=== PATIENT | female | born 2000 | race Caucasian/White ===

== ENCOUNTER 2024-04-25 16:39 | Inpatient (IN) ==
[2024-04-25 17:55] LABS: Appearance Urine Clear (Clear); Bacteria Urine Automated None Seen (None Seen); Bilirubin Urine Negative (Negative); Blood Urine Trace (Negative); Cast Urine Automated 0-2 /lpf (0-2); Color Urine Yellow; Epithelial Cell Urine Auto 0-2 /hpf (0-2); Glucose Urine UA Negative (Negative); Ketones Urine Negative (Negative); Leukocyte Esterase Urine Negative (Negative); Nitrite Urine Negative (Negative); Protein Urine Negative (Negative); RBC Urine Automated 0-2 /hpf (0-2); Specific Gravity Urine 1.017 (1.000-1.030); Urobilinogen Urine Negative (Negative); WBC Urine Automated 0-5 /hpf (0-5); pH Urine 6.5 (4.5-7.5)
[2024-04-25 18:06] LABS: Basophils # (auto) 0.02 K/uL (0.00-0.20); Basophils % (auto) 0.3 %; Eosinophils # (auto) 0.05 K/uL (0.00-0.50); Eosinophils % (auto) 0.7 %; Hematocrit (blood only) 39.6 % (37.0-47.0); Hemoglobin 13.7 g/dl (12.0-16.0); Immature Granulocytes # (auto) 0.02 K/uL (0.01-0.20); Immature Granulocytes % (auto) 0.3 %; Lymphocytes # (auto) 1.39 K/uL (1.20-3.40); Lymphocytes % (auto) 20.7 %; Mean Corpuscular Hemoglobin 32.4 pg (25.0-34.0); Mean Corpuscular Hgb Conc 34.6 g/dL (32.0-36.0); Mean Corpuscular Volume 93.6 fL (80.0-100.0); Mean Platelet Volume 11.3 fL (9.4-12.4); Monocytes # (auto) 0.66 K/uL (0.11-0.59); Monocytes % (auto) 9.8 %; Neutrophils # (auto) 4.59 K/uL (1.40-6.50); Neutrophils % (auto) 68.2 %; Platelet Count 220 K/uL (130-400); RDW Coefficient of Variation 11.4 % (11.5-14.5); RDW Standard Deviation 38.5 fL (36.4-46.3); Red Blood Count 4.23 M/uL (4.20-5.40); White Blood Count 6.73 K/ul (4.8-10.8)
[2024-04-25 18:16] LABS: Amphetamines+Metham, Urine Neg (Neg); Barbiturates, Urine Neg (Neg); Benzodiazepine, Urine Neg (Neg); Cocaine, Urine Neg (Neg); Fentanyl, Urine Neg (Neg); MDMA (Ecstacy), Urine Neg (Neg); Marijuana, Urine Neg (Neg); Methadone, Urine Neg (Neg); Opiate, Urine Neg (Neg); Phencyclidine, Urine Neg (Neg)
[2024-04-25 18:24] LABS: Albumin Globulin Ratio 1.6 (0.9-2); Albumin Level 4.4 gm/dl (3.4-5.0); BUN Creatinine Ratio 16.9 (10-20); Bilirubin,Total 0.4 mg/dl (0.2-1.0); Calcium 9.1 mg/dl (8.6-10.3); Creatinine Clr Calc Pharmacy 102.7 ml/min; Globulin 2.8 gm/dl (2.5-4.0); Potassium 4.2 mmol/L (3.5-5.1); Total Protein 7.2 gm/dl (6.0-8.3)
[2024-04-25 18:30] LABS: Acetaminophen < 3 ug/ml (10-30); Salicylate < 3.0 mg/dl (3.0-30)
[2024-04-25 18:40] LABS: Thyroid Stimulating Hormone 1.198 uIu/ml (0.300-4.500)
[2024-04-25 18:50] LABS: Pregnancy Test, Urine Negative (Negative)
[2024-04-25] MEDS: PANTOprazole 40 MG/10 ML SYR IV ONE (19:20)
--- NOTE | 2024-04-25 19:33 | Emergency Department Note ---
Impression & Plan Depression with suicidal ideation, Suicide attempt ED Provider Note NAME: TAMI CRUMP AGE: 23 SEX: F : 2000 ARRIVES VIA: Walk-In INFORMANT: [Patient][, ] ED PROVIDER(S): [Jennie Whatley MD] CHIEF COMPLAINT: Depression, SI, intentional overdose HPI: This is a 23-year-old female presenting for SI. Patient attempted kill her self today by taking 20+ pills of ibuprofen. She notes his intent to harm herself. She then began cutting her leg with a paper box maker multiple times. She thought that the ibuprofen would be a blood thinner so that she could bleed out. She otherwise notes no nausea, vomiting, chest pain. ROS: See above HPI for pertinent positives & negatives. A total of [10] systems reviewed and were otherwise negative. PAST MEDICAL HISTORY: [See Below] PAST SURGICAL HISTORY: [See Below] FAMILY HISTORY: [See Below] SOCIAL HISTORY: [See Below] HOME MEDICATIONS: [See Below] ALLERGIES: [See Below] VITALS: See Below PHYSICAL EXAMINATION: General: resting comfortably in no acute distress Head: Normocephalic and atraumatic Eyes: Normal inspection, extraocular muscles intact Ear, nose, throat: Normal external exam Neck: Normal range of motion Respiratory: lungs clear to auscultation bilaterally Cardiovascular: Regular rate/rhythm, no murmur GI: soft, nontender, no guarding or rebound Extremities: nontender, moves all extremities Neuro: The patient awake and alert, appropriately conversive, no focal deficits, symmetric faces Skin: Innumerable linear superficial lacerations to the right thigh Psych: Flat affect, linear thought process, MEDICAL DECISION MAKING: This is a 23-year-old female presenting for SI. Patient did try to overdose and cut in order to harm herself. She will require inpatient admission. She is voluntary at this time. -Patient only taking Motrin, will give Protonix. She otherwise has no coingestions on blood work. She denies any other ingestion. -Bloodwork is reviewed showing no significant leukocytosis, anemia, electrolyte or creatinine abnormality -Patient is cleared for psych placement -Patient will go to 3 S. unit here Differential diagnosis: Psychosis, SI, depression Past Med/Surg History Problem List (Updated 04/26/24 @ 00:59 by Jennie Whatley MD) Suicide attempt (Acute) Depression with suicidal ideation (Acute) Medical History (Updated 04/26/24 @ 00:59 by Jennie Whatley MD) No pertinent past medical history Social History (System 12/25/22 @ 07:57 by Nola Rae) Smoking Status: Never smoker Feels Safe at Home: Yes Gender Identity: Female Allergies Allergies Allergy/AdvReac Type Severity Reaction Status Date / Time No Known Allergies Allergy Verified 04/25/24 19:27 Home Meds Home Medications Medication Instructions Recorded Confirmed norgestrel 0.3 mg-ethinyl 1 tab PO DAILY 10/18/23 04/25/24 estradiol 30 mcg tablet (Low-Ogestrel (28)) Results & Data (ED) Vital Signs Vital Signs - 24 hr 04/25/24 17:00 04/25/24 17:26 04/25/24 19:00 Temperature 36.8 C Temperature Source Skin Pulse Rate 102 H 80 Pulse Rate [Apical] 91 H Pulse Rhythm [Apical] Regular Pulse Strength [Apical] Normal Respiratory Rate 18 20 Respiratory Effort / Characteristics Non-Labored Spontaneous Respiratory Depth Normal Respiratory Pattern Regular Blood Pressure 149/89 H Blood Pressure [Left Arm] 119/71 Blood Pressure Mean 109 Blood Pressure Mean [Left Arm] 87 Blood Pressure Position [Left Arm] Lying Pulse Oximetry 98 96 Oxygen Delivery Method Room Air Room Air Sepsis Recent Fever Within 48 Hours No Sepsis New/Unexplained Change in Mental Status No Sepsis Action Taken by Nursing No Action Required 04/25/24 21:00 04/25/24 21:22 04/25/24 23:00 Temperature Temperature Source Pulse Rate 84 Pulse Rate [Apical] 84 94 H Pulse Rhythm [Apical] Regular Pulse Strength [Apical] Normal Respiratory Rate 18 18 Respiratory Effort / Characteristics Non-Labored Respiratory Depth Normal Respiratory Pattern Regular Blood Pressure Blood Pressure [Left Arm] 108/74 118/77 Blood Pressure Mean Blood Pressure Mean [Left Arm] 85 90 Blood Pressure Position [Left Arm] Lying Pulse Oximetry 97 98 Oxygen Delivery Method Room Air Room Air Sepsis Recent Fever Within 48 Hours Sepsis New/Unexplained Change in Mental Status Sepsis Action Taken by Nursing 04/25/24 23:30 Temperature Temperature Source Pulse Rate Pulse Rate [Apical] 94 H Pulse Rhythm [Apical] Pulse Strength [Apical] Respiratory Rate 16 Respiratory Effort / Characteristics Respiratory Depth Respiratory Pattern Blood Pressure Blood Pressure [Left Arm] 112/77 Blood Pressure Mean Blood Pressure Mean [Left Arm] 88 Blood Pressure Position [Left Arm] Pulse Oximetry 98 Oxygen Delivery Method Room Air Sepsis Recent Fever Within 48 Hours Sepsis New/Unexplained Change in Mental Status Sepsis Action Taken by Nursing Laboratory Data 04/25/24 17:46 04/25/24 17:46 Lab Results 04/25/24 04/25/24 04/25/24 Range/Units 17:14 17:38 17:46 WBC 6.73 (4.8-10.8) K/ul RBC 4.23 (4.20-5.40) M/uL Hgb 13.7 (12.0-16.0) g/dl Hct 39.6 (37.0-47.0) % MCV 93.6 (80.0-100.0) fL MCH 32.4 (25.0-34.0) pg MCHC 34.6 (32.0-36.0) g/dL RDW Std Deviation 38.5 (36.4-46.3) fL RDW Coeff of Ethan 11.4 L (11.5-14.5) % Plt Count 220 (130-400) K/uL MPV 11.3 (9.4-12.4) fL Immature Gran % (Auto) 0.3 % Neut % (Auto) 68.2 % Lymph % (Auto) 20.7 % Nolan % (Auto) 9.8 % Eos % (Auto) 0.7 % Baso % (Auto) 0.3 % Neut # (Auto) 4.59 (1.40-6.50) K/uL Lymph # (Auto) 1.39 (1.20-3.40) K/uL Nolan # (Auto) 0.66 H (0.11-0.59) K/uL Eos # (Auto) 0.05 (0.00-0.50) K/uL Baso # (Auto) 0.02 (0.00-0.20) K/uL Immature Gran # (Auto) 0.02 (0.01-0.20) K/uL Sodium 140 (136-145) mmol/L Potassium 4.2 (3.5-5.1) mmol/L Chloride 106 (98-107) mmol/L Carbon Dioxide 28 (21-32) mmol/L Anion Gap 6 (3-11) BUN 15 (6-23) mg/dl Creatinine 0.89 (0.6-1.2) mg/dl Est Cr Clr Drug Dosing 102.7 ml/min eGFR 93.37 BUN/Creatinine Ratio 16.9 (10-20) Glucose 87 (70-99(Fasting)) mg/dl Calcium 9.1 (8.6-10.3) mg/dl Total Bilirubin 0.4 (0.2-1.0) mg/dl AST 18 (13-39) U/L ALT 14 (7-52) U/L Alkaline Phosphatase 50 (34-104) U/L Total Protein 7.2 (6.0-8.3) gm/dl Albumin 4.4 (3.4-5.0) gm/dl Globulin 2.8 (2.5-4.0) gm/dl Albumin/Globulin Ratio 1.6 (0.9-2) TSH 1.198 (0.300-4.500) uIu/ml Urine Color Yellow Urine Appearance Clear (Clear) Urine pH 6.5 (4.5-7.5) Ur Specific [place] 1.017 (1.000-1.030) Urine Protein Negative (Negative) Urine Glucose (UA) Negative (Negative) Urine Ketones Negative (Negative) Urine Blood Trace H (Negative) Urine Nitrite Negative (Negative) Urine Bilirubin Negative (Negative) Urine Urobilinogen Negative (Negative) Ur Leukocyte Esterase Negative (Negative) Urine WBC (Auto) 0-5 (0-5) /hpf Urine RBC (Auto) 0-2 (0-2) /hpf U Hyaline Cast (Auto) 0-2 (0-2) /lpf U Epithel Cells (Auto) 0-2 (0-2) /hpf Urine Bacteria (Auto) None Seen (None Seen) Urine Test Negative (Negative) Salicylates < 3.0 L (3.0-30) mg/dl Urine Opiates Screen Neg (Neg) Ur Methadone, Qual Neg (Neg) Urine Fentanyl Screen Neg (Neg) Acetaminophen < 3 L (10-30) ug/ml Urine Barbiturates Neg (Neg) Ur Phencyclidine (PCP) Neg (Neg) U Amphetamin/Meth Scrn Neg (Neg) MDMA (Ecstasy) Screen Neg (Neg) U Benzodiazepines Scrn Neg (Neg) Ur Cocaine Metabolite Neg (Neg) U Marijuana (THC) Screen Neg (Neg) Ethyl Alcohol mg/dL < 10.0 (<10.0) mg/dl Administered Medications Discontinued Medications Pantoprazole Sodium (Protonix) 40 mg in 10 mls @ 5 mls/min IV NOW ONE Stop: 04/25/24 18:49 Last Admin: 04/25/24 19:20 Dose: 5 mls/min Documented By: GIOVANNA Discharge Plan Visit Data Chief Complaint: Mental Health Evaluation Stated Complaint: SUICIDE, SELF HARM THIGH BLEEDING ED Provider: Jennie Whatley Discharge Problem: Depression with suicidal ideation, Suicide attempt Patient Disposition: Transfer Behavioral Health Fac Discharge Instructions Interventions: ED Discharge Assessment Last Done: 04/26/24 00:27
[2024-04-25] MEDS ORDERED: SODIUM CHLORIDE 0.65% NA SOLN 45 ML (OCEAN) PRN (23:36)
[2024-04-25] MEDS ORDERED: ALUMINUM/MAGNESIUM SUSP 30 ML UDC PO PRN (23:36)
[2024-04-25] MEDS ORDERED: MAGNESIUM HYDROXIDE SUSP 30 ML UDC PO PRN (23:36)
[2024-04-25] MEDS ORDERED: hydrOXYzine HCl 25 MG TAB PO PRN (23:36)
[2024-04-25] MEDS ORDERED: ACETAMINOPHEN 325 MG TAB PO PRN (23:36)
[2024-04-25] MEDS ORDERED: BISMUTH SUBSALICYLATE 262 MG CHEW PO PRN (23:36)
--- NOTE | 2024-04-26 10:02 | History & Physical ---
Date of Service April 26, 2024 Impression / Recommendations Impression TAMI CRUMP is a 23-year-old woman and [employer] student who currently lives off campus with a roommate, has no formal psychiatric history, and was admitted on 04/25/24 23:36 on a 201 voluntary commitment for suicide attempt via cutting herself with a box order person and Ibuprofen overdose. Diagnostically consistent with major depressive disorder with anxious distress and DIONTE with panic attacks. Discussed medication treatment options in detail. Discussed risks, benefits and alternatives. Patient would like to start and consented to sertraline for MDD/DIONTE. Reviewed side effects including but not limited to: GI, BARNES, sexual side effects, and counseled on black box warning of potential for emergence of or increased SI and need to let staff know should this occur or should they feel unsafe. Also discussed importance of seeking emergency care following discharge if this side effect occurs in the future. Overall I spent a total of 75 minutes for this admission including review of chart records, review of labwork, direct evaluation of the patient, counseling the patient, ordering medication, risk assessment, discussion with the psychiatric liason RN and documentation in the electronic health record. (1) Suicide attempt: (2) Depression with suicidal ideation: (3) Major depressive disorder, single episode, severe with anxious distress: (4) Generalized anxiety disorder with panic attacks: Plan 04/26/2024: The patient was admitted to the [facility] ([facility] mental [facility] unit) on q15 min checks (behavioral with suicide precautions) for safety. The patient will participate in group, recreational, and milieu therapies and will be offered additional individual and family sessions as clinically appropriate. -Start sertraline 25mg qd -Symptom Questionnaire: [place] BPD screening tool -Discussed option for outpatient IOP vs increasing frequency of outpatient therapy Inventory Assets Strengths: supportive relationships, willing to get treatment Needs: safety and stabilization, medication adjustment, additional coping skills, increased outpatient services Suicide Risk Level Suicide Risk Level: High-Moderate (q15 min suicide checks) (s/p serious suicide attempt and ongoing SI but feels safe in the hospital and feels able to ask for support ) Risk Factors Assessment Male: No : Yes Do You Have Access To A Gun?: No (dad has a safe of guns but these are secured) Health Problems: No Mental Health Diagnoses: Yes Substance Use Disorders: No Previous Attempt: Yes (leading to admission) Family History of Suicide: No Previous Psychiatric Hospitalization: No Hopelessness: Yes Protective Factors Assessment 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 Chief Complaint "I'm where I need to be to try to feel better". History of Present Illness She presents for psychiatric admission following a suicide attempt via cutting her right thigh ~50 times with a box order person and overdose of Ibuprofen (~20 tabs) in the context of academic stress related to her thesis and worsening depression. She describes a gradual onset of depressive symptoms over the past couple of months, which intensified in the last one to two days leading to the suicide attempt. She had initially planned the attempt for Sunday after a [employer] tournament but moved it up by a day after learning that the tournament would require an overnight stay which would have prevented her planned timeline for suicide. She endorses depressive symptoms starting at the beginning of February and then started to plan to by suicide in the last 1-2 days. She decided to attempt via cutting and taking pills and researched the maximum recommended dosage for Ibuprofen and then took all the pills she had left in a bottle. After taking the pills and cutting herself she decided to tell her roommate who then brought her to the hospital. She endorses symptoms of depression starting in February including physical discomfort, tearfulness and numbness, anhedonia (not wanting to see friends or engage in activities), decreased motivation (including for schoolwork which typically she is very anxious about staying on top of), self-guilt, helplessness, hopelessness, worthlessness, decreased energy (despite drinking a lot more caffeine), stable appetite, and fluctuating sleep more recently sleeping more but with multiple overnight awakenings. SI has been occurring for the last week and intensified in the last 1-2 days. She also endorses symptoms of anxiety including fear of how she's feeling, being 'scared in general,' and recent panic attacks involving intense crying and difficulty breathing, occurring suddenly in inconvenient places, including during rugby practice. She is not currently prescribed any psychiatric medications. Psychiatric ROS notable for no current nor history of symptoms of prachi, psychosis, PTSD, OCD nor eating disorder. History of self-harm in high school 5- 6 years ago, none since that time until during the attempt. Past Psychiatric History Current Psychiatric Diagnosis: No prior mental health diagnosis Outpatient Services: therapy with Am[facility], once every two weeks Previous Psych Admissions: none Do You Have Access To A Gun?: No (dad has a safe of guns but these are secured) History of Previous Suicide Attempt: No Past Medication Trials: none Past Head Trauma/Neuro History History of Concussion/Seizure: No Allergies Allergy/AdvReac Type Severity Reaction Status Date / Time No Known Allergies Allergy Verified 04/25/24 19:27 Home Medications Medication Instructions Recorded Confirmed Type norgestrel 0.3 mg-ethinyl 1 tab PO DAILY 10/18/23 04/25/24 History estradiol 30 mcg tablet (Low-Ogestrel (28)) Family History Family History of: Alcoholism/Drug Abuse (maternal side extended family) Alcohol History Hx of Alcohol Use Over the Past 12 Months: No Very occasional use Smoking Use Have You Smoked or Used Tobacco Products in the Last 30 Days: No Smoking Status: Never smoker Substance History Hx of Prescription Med Misuse Over the Past 12 Months: No Hx of Over the Counter Med Misuse Over the Past 12 Months: No Hx of Inhalent Misuse Over the Past 12 Months: No Hx of Organic Substance Use Over the Past 12 Months: No Hx of Illegal Substances/Street Drug Use Over Past 12 Months: No Problems as a Result of Past Substance Use: None Identified Personal History Living Arrangements: Apartment Childhood: Parents , has two younger sisters. 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) Marital Status: Single Beliefs That Will Affect Care: None Current Legal Problems: No Hx Legal Problems: No Hx Traumatic Life Events: No Patient History Medical History No pertinent past medical history Social History Smoking Status: Never smoker Preferred Language: Indonesian Communication Ability: Effective Documentation Spec Required: No Beliefs That Will Affect Care: None Feels Safe at Home: Yes Gender Identity: Female Assistive Devices: None Review of Systems Review of Systems: All systems reviewed & are unremarkable except as noted in HPI & below Physical Exam Psychiatric: Orientation: alert and oriented x 3 Apperance: appropriately dressed and appropriately groomed Eye Contact: good eye contact Motor Behavior: no abnormal motor movements Speech: normal rate/rhythm/volume of speech Affect: + depressed affect and + flat affect Mood: + depressed mood and + anxious mood Thought Process: goal directed thought process Thought Content: reality based without delusions Suicidal Thoughts: denies suicidal plan (none for hospital but s/p attempt) and denies suicidal intent; + reports suicidal thoughts (still present but more "subdued" ) Homicidal Thoughts: denies homicidal thoughts Hallucinations: no auditory hallucinations and no visual hallucinations Cognition: recent memory grossly intact, remote memory grossly intact, attention grossly intact and language grossly intact Estimated Intelligence: consistent with education level Insight: + limited insight Judgment: + limited judgement Vital Signs (Past 24 Hours): Last Vital Signs Temp 36.6 C 04/26/24 06:00 Pulse 88 04/26/24 06:42 Resp 16 04/26/24 06:00 BP 118/71 04/26/24 06:42 Pulse Ox 99 04/26/24 06:00 O2 Del Method Room Air 04/26/24 06:00 Exam Statement: A physical exam was performed in the ED by Dr. Whatley for the purposes of medical clearance. I accept that physical as correct and adequate for the purposes of the inpatient physical exam. Results & Data ([facility]) Laboratory Results Laboratory Results - last 24 hr 04/25/24 04/25/24 04/25/24 17:14 17:38 17:46 WBC 6.73 RBC 4.23 Hgb 13.7 Hct 39.6 MCV 93.6 MCH 32.4 MCHC 34.6 RDW Std Deviation 38.5 RDW Coeff of Ethan 11.4 L Plt Count 220 MPV 11.3 Immature Gran % (Auto) 0.3 Neut % (Auto) 68.2 Lymph % (Auto) 20.7 [place] % (Auto) 9.8 Eos % (Auto) 0.7 Baso % (Auto) 0.3 Neut # (Auto) 4.59 Lymph # (Auto) 1.39 [place] # (Auto) 0.66 H Eos # (Auto) 0.05 Baso # (Auto) 0.02 Immature Gran # (Auto) 0.02 Sodium 140 Potassium 4.2 Chloride 106 Carbon Dioxide 28 Anion Gap 6 BUN 15 Creatinine 0.89 Est Cr Clr Drug Dosing 102.7 eGFR 93.37 BUN/Creatinine Ratio 16.9 Glucose 87 Calcium 9.1 Total Bilirubin 0.4 AST 18 ALT 14 Alkaline Phosphatase 50 Total Protein 7.2 Albumin 4.4 Globulin 2.8 Albumin/Globulin Ratio 1.6 TSH 1.198 Urine Color Yellow Urine Appearance Clear Urine pH 6.5 Ur Specific [place] 1.017 Urine Protein Negative Urine Glucose (UA) Negative Urine Ketones Negative Urine Blood Trace H Urine Nitrite Negative Urine Bilirubin Negative Urine Urobilinogen Negative Ur Leukocyte Esterase Negative Urine WBC (Auto) 0-5 Urine RBC (Auto) 0-2 U Hyaline Cast (Auto) 0-2 U Epithel Cells (Auto) 0-2 Urine Bacteria (Auto) None Seen Urine Test Negative Salicylates < 3.0 L Urine Opiates Screen Neg Ur Methadone, Qual Neg Urine Fentanyl Screen Neg Acetaminophen < 3 L Urine Barbiturates Neg Ur Phencyclidine (PCP) Neg U Amphetamin/Meth Scrn Neg MDMA (Ecstasy) Screen Neg U Benzodiazepines Scrn Neg Ur Cocaine Metabolite Neg U Marijuana (THC) Screen Neg Ethyl Alcohol mg/dL < 10.0 SARS-CoV-2, RNA, NAAT 04/25/24 Unknown WBC RBC Hgb Hct MCV MCH MCHC RDW Std Deviation RDW Coeff of Ethan Plt Count MPV Immature Gran % (Auto) Neut % (Auto) Lymph % (Auto) [place] % (Auto) Eos % (Auto) Baso % (Auto) Neut # (Auto) Lymph # (Auto) [place] # (Auto) Eos # (Auto) Baso # (Auto) Immature Gran # (Auto) Sodium Potassium Chloride Carbon Dioxide Anion Gap BUN Creatinine Est Cr Clr Drug Dosing eGFR BUN/Creatinine Ratio Glucose Calcium Total Bilirubin AST ALT Alkaline Phosphatase Total Protein Albumin Globulin Albumin/Globulin Ratio TSH Urine Color Urine Appearance Urine pH Ur Specific [place] Urine Protein Urine Glucose (UA) Urine Ketones Urine Blood Urine Nitrite Urine Bilirubin Urine Urobilinogen Ur Leukocyte Esterase Urine WBC (Auto) Urine RBC (Auto) U Hyaline Cast (Auto) U Epithel Cells (Auto) Urine Bacteria (Auto) Urine Test Salicylates Urine Opiates Screen Ur Methadone, Qual Urine Fentanyl Screen Acetaminophen Urine Barbiturates Ur Phencyclidine (PCP) U Amphetamin/Meth Scrn MDMA (Ecstasy) Screen U Benzodiazepines Scrn Ur Cocaine Metabolite U Marijuana (THC) Screen Ethyl Alcohol mg/dL SARS-CoV-2, RNA, NAAT NEGATIVE Current Inpatient Medications Current Inpatient Medications: Current Inpatient Medications Acetaminophen (Acetaminophen 325 Mg Tab) 650 mg PO Q4H PRN PRN Reason: Headache or Minor Fever Stop: 05/25/24 23:35 Al Hydrox/Mg Hydrox/Simethicone (Aluminum/Magnesium Susp 30 Ml Udc) 30 ml PO Q4H PRN PRN Reason: GI Upset Stop: 05/25/24 23:35 Bismuth Subsalicylate (Bismuth Subsalicylate 262 Mg Chew) 2 tab PO Q30M PRN PRN Reason: Loose Stool/Diarrhea Stop: 05/25/24 23:35 Hydroxyzine HCl (Hydroxyzine Hcl 25 Mg Tab) 50 mg PO HSZ PRN PRN Reason: Insomnia Stop: 05/25/24 23:35 Hydroxyzine HCl (Hydroxyzine Hcl 25 Mg Tab) 25 mg PO Q4H PRN PRN Reason: Anxiety Stop: 05/25/24 23:35 Magnesium Hydroxide (Magnesium Hydroxide Susp 30 Ml Udc) 30 ml PO DAILY PRN PRN Reason: Constipation Stop: 05/25/24 23:35 Sodium Chloride (Sodium Chloride 0.65% Na Soln 45 Ml ([place])) 1 - 2 sprays NA P RN PRN PRN Reason: Nasal Dryness/Congestion Stop: 05/25/24 23:35
[2024-04-26] MEDS: SERTRALINE HCL 50 MG TABLET PO ONE (15:12)
[2024-04-27] MEDS: SERTRALINE HCL 50 MG TABLET PO SCH (09:02)
--- NOTE | 2024-04-27 09:36 | Psychiatric Progress Note ---
Date of Service April 27, 2024 Impression / Recommendations Impression TMAI CRUMP is a 23-year-old woman and [employer] student who currently lives off campus with a roommate, has no formal psychiatric history, and was admitted on 04/25/24 23:36 on a 201 voluntary commitment for suicide attempt via cutting herself with a juke box mechanic and Ibuprofen overdose. Diagnostically consistent with major depressive disorder with anxious distress and DIONTE with panic attacks. A: Ongoing depression which is also impacting her sleep. Discussed medication options, she plans to try Vistaril tonight. Tolerating initiation of sertraline with minimal GI side effects. SI lessening. Discussed IOP option with CBT/DBT, she prefers to try to increase frequency of sessions with her outpatient therapist. Reviewed [place] BPD screen which was negative. Overall, I spent a total of 30 minutes on this case including meeting with the patient, reviewing the chart, nursing report, multidisciplinary team meeting, orders, and documentation. (1) Suicide attempt: (2) Depression with suicidal ideation: (3) Major depressive disorder, single episode, severe with anxious distress: (4) Generalized anxiety disorder with panic attacks: Plan 04/27/2024: -Sertraline 50mg daily 04/26/2024: The patient was admitted to the [facility] ([facility] inpatient mental health unit) on q15 min checks (behavioral with suicide precautions) for safety. The patient will participate in group, recreational, and milieu therapies and will be offered additional individual and family sessions as clinically appropriate. -Start sertraline 25mg qd -Symptom Questionnaire: [place] BPD screening tool -Discussed option for outpatient IOP vs increasing frequency of outpatient therapy Inventory Assets Strengths: supportive relationships, willing to get treatment Needs: safety and stabilization, medication adjustment, additional coping skills, increased outpatient services Suicide Risk Level Suicide Risk Level: High-Moderate (q15 min suicide checks) (s/p serious suicide attempt and ongoing SI but feels safe in the hospital and feels able to ask for support ) Suicide Risk Level Comments: Risk Factors Assessment Male: No : Yes Do You Have Access To A Gun?: No (dad has a safe of guns but these are secured) Health Problems: No Mental Health Diagnoses: Yes Substance Use Disorders: No Previous Attempt: Yes (leading to admission) Family History of Suicide: No Previous Psychiatric Hospitalization: No Hopelessness: Yes Protective Factors Assessment 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 Chief Complaint "Pretty good, I'm feeling more comfortable here". Review of Systems Sleep Information Total Hours of Sleep: 7 Meal Information Percent Meal Consumed - Breakfast: 100 Percent Meal Consumed - Lunch: 100 Percent Meal Consumed - Dinner: 100 Subjective Subjective Patient was seen & assessed and interval progress reviewed with nursing. Had a good visit with her mom yesterday. Attending all groups. Last evening reported her mood as "content". Has been drawing and doing artwork. Today reports some improvement in mood and feeling more comfortable on the unit. SI is currently "low" which she attributes to "being further from the incident". She had difficulty falling asleep and woke up early this morning. Tired due to poor sleep. Discussed sleep hygiene and medication options to help with sleep, she wants to try prn Vistaril tonight. Some diarrhea but no other side effects from sertraline. Physical Exam Psychiatric Orientation: alert and oriented x 3 Apperance: appropriately dressed and appropriately groomed Eye Contact: good eye contact Motor Behavior: no abnormal motor movements Speech: normal rate/rhythm/volume of speech Affect: + depressed affect and + flat affect Mood: + depressed mood and + anxious mood Thought Process: goal directed thought process Thought Content: reality based without delusions Suicidal Thoughts: denies suicidal plan (none for hospital but s/p attempt) and denies suicidal intent; + reports suicidal thoughts (lessening) Homicidal Thoughts: denies homicidal thoughts Hallucinations: no auditory hallucinations and no visual hallucinations Cognition: recent memory grossly intact, remote memory grossly intact, attention grossly intact and language grossly intact Estimated Intelligence: consistent with education level Insight: + limited insight Judgment: + limited judgement Vital Signs (Past 24 Hours) Last Vital Signs Temp 36.9 C 04/27/24 06:00 Pulse 98 H 04/27/24 06:00 Resp 16 04/27/24 06:00 BP 112/77 04/27/24 06:50 Pulse Ox 98 04/27/24 06:00 O2 Del Method Room Air 04/27/24 06:00 Results & Data ([facility]) Current Inpatient Medications Current Inpatient Medications: Current Inpatient Medications Acetaminophen (Acetaminophen 325 Mg Tab) 650 mg PO Q4H PRN PRN Reason: Headache or Minor Fever Stop: 05/25/24 23:35 Al Hydrox/Mg Hydrox/Simethicone (Aluminum/Magnesium Susp 30 Ml Udc) 30 ml PO Q4H PRN PRN Reason: GI Upset Stop: 05/25/24 23:35 Bismuth Subsalicylate (Bismuth Subsalicylate 262 Mg Chew) 2 tab PO Q30M PRN PRN Reason: Loose Stool/Diarrhea Stop: 05/25/24 23:35 Hydroxyzine HCl (Hydroxyzine Hcl 25 Mg Tab) 50 mg PO HSZ PRN PRN Reason: Insomnia Stop: 05/25/24 23:35 Hydroxyzine HCl (Hydroxyzine Hcl 25 Mg Tab) 25 mg PO Q4H PRN PRN Reason: Anxiety Stop: 05/25/24 23:35 Magnesium Hydroxide (Magnesium Hydroxide Susp 30 Ml Udc) 30 ml PO DAILY PRN PRN Reason: Constipation Stop: 05/25/24 23:35 Sertraline HCl (Sertraline Hcl 50 Mg Tablet) 50 mg PO QAM KATEY Stop: 05/27/24 08:59 Last Admin: 04/27/24 09:02 Dose: 50 mg Sodium Chloride (Sodium Chloride 0.65% Na Soln 45 Ml ([place])) 1 - 2 sprays NA PRN PRN PRN Reason: Nasal Dryness/Congestion Stop: 05/25/24 23:35 Mental Health & Subst Abuse Tx Therapist Name of Therapist: [facility] - biweekly Web Graphic Designer Name of Web Graphic Designer: None
[2024-04-27] MEDS: LOW OGESTREL PO SCH (21:57)
[2024-04-27] MEDS: CONTRACEPTIVE PO SCH (21:57)
[2024-04-27] MEDS: hydrOXYzine HCl 25 MG TAB PO PRN (22:33)
--- NOTE | 2024-04-28 09:10 | Psychiatric Progress Note ---
Date of Service April 28, 2024 Impression / Recommendations Impression TAMI CRUMP is a 23-year-old woman and [employer] student who currently lives off campus with a roommate, has no formal psychiatric history, and was admitted on 04/25/24 23:36 on a 201 voluntary commitment for suicide attempt via cutting herself with a crap game box person and Ibuprofen overdose. Diagnostically consistent with major depressive disorder with anxious distress and DIONTE with panic attacks. A: Ongoing depression and anxiety. Tolerating sertraline, slept better with Vistaril prn. Exploring driving factors behind her suicide attempt, she is agreeable to completing CAMS framework for investigating this. Apparently suicide note found at her apartment. Discussed some coping skills and CBT strategies to address anxiety about post-discharge stressors. Overall, I spent a total of 35 minutes on this case including meeting with the patient, reviewing the chart, nursing report, multidisciplinary team meeting, orders, and documentation. (1) Suicide attempt: (2) Depression with suicidal ideation: (3) Major depressive disorder, single episode, severe with anxious distress: (4) Generalized anxiety disorder with panic attacks: Plan 04/28/2024: Continue current medications and tx plan 04/27/2024: -Sertraline 50mg daily 04/26/2024: The patient was admitted to the [facility] ([facility] inpatient mental health unit) on q15 min checks (behavioral with suicide precautions) for safety. The patient will participate in group, recreational, and milieu therapies and will be offered additional individual and family sessions as clinically appropriate. -Start sertraline 25mg qd -Symptom Questionnaire: [place] BPD screening tool -Discussed option for outpatient IOP vs increasing frequency of outpatient therapy Inventory Assets Strengths: supportive relationships, willing to get treatment Needs: safety and stabilization, medication adjustment, additional coping skills, increased outpatient services Suicide Risk Level Suicide Risk Level: High-Moderate (q15 min suicide checks) (s/p serious suicide attempt and ongoing SI but feels safe in the hospital and feels able to ask for support ) Suicide Risk Level Comments: Risk Factors Assessment Male: No : Yes Do You Have Access To A Gun?: No (dad has a safe of guns but these are secured) Health Problems: No Mental Health Diagnoses: Yes Substance Use Disorders: No Previous Attempt: Yes (leading to admission) Family History of Suicide: No Previous Psychiatric Hospitalization: No Hopelessness: Yes Protective Factors Assessment 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 Chief Complaint "Good". Review of Systems Sleep Information Total Hours of Sleep: 6.25 Meal Information Percent Meal Consumed - Breakfast: 100 Percent Meal Consumed - Lunch: 100 Percent Meal Consumed - Dinner: 100 Subjective Subjective Patient was seen & assessed and interval progress reviewed with treatment team. Attending groups. Has been reading during free time. Had a good visit from her mom and friend. Took Vistaril prn at bedtime and slept for 6.25 hours, fell asleep faster and was able to fall back asleep after morning awakening. Today reports her mood is "good" but also increased anxiety when she thinks about stressors that await her outside the hospital related to academics. Lessening of SI. No side effects to sertraline. Physical Exam Psychiatric Orientation: alert and oriented x 3 Apperance: appropriately dressed and appropriately groomed Eye Contact: good eye contact Motor Behavior: no abnormal motor movements Speech: normal rate/rhythm/volume of speech Affect: + constricted affect Mood: + depressed mood and + anxious mood Thought Process: goal directed thought process Thought Content: reality based without delusions Suicidal Thoughts: denies suicidal plan (none for hospital but s/p attempt) and denies suicidal intent; + reports suicidal thoughts (lessening, reports "pretty much not there" today) Homicidal Thoughts: denies homicidal thoughts Hallucinations: no auditory hallucinations and no visual hallucinations Cognition: recent memory grossly intact, remote memory grossly intact, attention grossly intact and language grossly intact Estimated Intelligence: consistent with education level Insight: + limited insight Judgment: + limited judgement Vital Signs (Past 24 Hours) Last Vital Signs Temp 37.1 C 04/28/24 06:00 Pulse 63 04/28/24 06:00 Resp 16 04/28/24 06:00 BP 110/73 04/28/24 06:30 Pulse Ox 97 04/28/24 06:00 O2 Del Method Room Air 04/28/24 06:00 Results & Data ([facility]) Current Inpatient Medications Current Inpatient Medications: Current Inpatient Medications Acetaminophen (Acetaminophen 325 Mg Tab) 650 mg PO Q4H PRN PRN Reason: Headache or Minor Fever Stop: 05/25/24 23:35 Al Hydrox/Mg Hydrox/Simethicone (Aluminum/Magnesium Susp 30 Ml Udc) 30 ml PO Q4H PRN PRN Reason: GI Upset Stop: 05/25/24 23:35 Bismuth Subsalicylate (Bismuth Subsalicylate 262 Mg Chew) 2 tab PO Q30M PRN PRN Reason: Loose Stool/Diarrhea Stop: 05/25/24 23:35 Hydroxyzine HCl (Hydroxyzine Hcl 25 Mg Tab) 50 mg PO HSZ PRN PRN Reason: Insomnia Stop: 05/25/24 23:35 Last Admin: 04/27/24 22:33 Dose: 50 mg Hydroxyzine HCl (Hydroxyzine Hcl 25 Mg Tab) 25 mg PO Q4H PRN PRN Reason: Anxiety Stop: 05/25/24 23:35 Magnesium Hydroxide (Magnesium Hydroxide Susp 30 Ml Udc) 30 ml PO DAILY PRN PRN Reason: Constipation Stop: 05/25/24 23:35 Miscellaneous ([id number]-Patient's Own Oral Contraceptive) 1 each PO HS KATEY Stop: 05/27/24 21:59 Last Admin: 04/27/24 21:57 Dose: 1 each Sertraline HCl (Sertraline Hcl 50 Mg Tablet) 50 mg PO QAM KATEY Stop: 05/27/24 08:59 Last Admin: 04/28/24 08:43 Dose: 50 mg Sodium Chloride (Sodium Chloride 0.65% Na Soln 45 Ml ([place])) 1 - 2 sprays NA PRN PRN PRN Reason: Nasal Dryness/Congestion Stop: 05/25/24 23:35 Mental Health & Subst Abuse Tx Therapist Name of Therapist: [facility] - biweekly Legal Secretary Name of Legal Secretary: None
--- NOTE | 2024-04-28 13:27 | Electrocardiogram Report ---
Test Reason : Blood Pressure : */* mmHG Vent. Rate : 83 BPM Atrial Rate : 83 BPM P-R Int : 144 ms QRS Dur : 78 ms QT Int : 352 ms P-R-T Axes : 70 62 37 degrees QTcB Int : 413 ms Poor data quality, interpretation may be adversely affected Normal sinus rhythm with sinus arrhythmia Normal ECG No previous ECGs available Confirmed by Isaias Roth ([id number]) on 04/28/2024 1:27:38 PM Referred By: REFERRED SELF Confirmed By: Isaias Roth
--- NOTE | 2024-04-29 09:00 | Psychiatric Progress Note ---
Date of Service April 29, 2024 Impression / Recommendations Impression TAMI CRUMP is a 23-year-old woman and [employer] student who currently lives off campus with a roommate, has no formal psychiatric history, and was admitted on 04/25/24 23:36 on a 201 voluntary commitment for suicide attempt via cutting herself with a box stacker and Ibuprofen overdose. Diagnostically consistent with major depressive disorder with anxious distress and DIONTE with panic attacks. A: Ongoing depression and anxiety but showing gradual improvement and denies SI today. Still struggling to sleep, discussed option to try trazodone for MDD/insomnia which she consents to, reviewed side effects including but not limited to: sedation, increased appetite. Continuing to discuss and explore factors that lead to suicide attempt and how to lessen this moving forward. Significant social anxiety and self-criticism Reviewed cognitive distortions, ways to increase self-compassion, and ways to challenge automatic/negative/social anxiety thoughts. Encouraged her to again consider DBT/CBT IOP as this is likely to be one of the most beneficial interventions for increasing self worth and exploring her sense of identity. Overall, I spent a total of 50 minutes on this case including meeting with the patient, reviewing the chart, nursing report, multidisciplinary team meeting, orders, and documentation. (1) Suicide attempt: (2) Depression with suicidal ideation: (3) Major depressive disorder, single episode, severe with anxious distress: (4) Generalized anxiety disorder with panic attacks: Plan 04/29/2024: -Start trazodone 50mg HS and 50mg HS prn for insomnia if initial dose is ineffective 04/28/2024: Continue current medications and tx plan 04/27/2024: -Sertraline 50mg daily 04/26/2024: The patient was admitted to the [facility] ([facility] mental health unit) on q15 min checks (behavioral with suicide precautions) for safety. The patient will participate in group, recreational, and milieu therapies and will be offered additional individual and family sessions as clinically appropriate. -Start sertraline 25mg qd -Symptom Questionnaire: [place] BPD screening tool -Discussed option for outpatient IOP vs increasing frequency of outpatient therapy Inventory Assets Strengths: supportive relationships, willing to get treatment Needs: safety and stabilization, medication adjustment, additional coping skills, increased outpatient services Suicide Risk Level Suicide Risk Level: Moderate (q15 min suicide checks) (s/p serious suicide attempt but now denies SI, mood improving, feels safe in the hospital and feels able to ask for support ) Suicide Risk Level Comments: Risk Factors Assessment Male: No : Yes Do You Have Access To A Gun?: No (dad has a safe of guns but these are secured) Health Problems: No Mental Health Diagnoses: Yes Substance Use Disorders: No Previous Attempt: Yes (leading to admission) Family History of Suicide: No Previous Psychiatric Hospitalization: No Hopelessness: Yes Protective Factors Assessment 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 Chief Complaint "I'm good". Review of Systems Sleep Information Total Hours of Sleep: 7.25 Meal Information Percent Meal Consumed - Breakfast: 100 Percent Meal Consumed - Lunch: 100 Percent Meal Consumed - Dinner: 100 Subjective Subjective Patient was seen & assessed and interval progress reviewed with nursing and social work. Attending groups, reported mood last evening as "optimistic". Reviewed suicide note found in her belongings at her apartment by family. Note speaks to her increased difficulty in context of not feeling zenia and lack of sense of identity. She writes "I failed as a person", "I am, at my core, is n othing", "I cannot convince myself I am worth anything" and that "I don't think this is a very good suicide note but it might help explain some things". Offered option to process note with me, she prefers not to read it again or have it to review individually which was validated. Reviewed CAMS and she rates her overall risk of suicide as 1/5 (extremely low risk, will not kill self) and her wish to live as 7/8 (8 being very much) and wish to as 1/8 (0 being not at all). She feels the one thing that would help her no longer feel suicidal would be: to know that I can feel better. Processed this with her including challenges with sense of identity since coming to college, following 6 year romantic relationship that ended this summer, and highly self-critical thoughts regarding her academic performance and social interactions. She feels her mood is improving and denies any SI today. Still struggling to sleep, she'd like to try trazodone tonight. Physical Exam Psychiatric Orientation: alert and oriented x 3 Apperance: appropriately dressed and appropriately groomed Eye Contact: good eye contact Motor Behavior: no abnormal motor movements Speech: normal rate/rhythm/volume of speech Affect: + constricted affect Mood: + depressed mood and + anxious mood Thought Process: goal directed thought process Thought Content: reality based without delusions Suicidal Thoughts: denies suicidal thoughts, denies suicidal plan (none for hospital but s/p attempt) and denies suicidal intent Homicidal Thoughts: denies homicidal thoughts Hallucinations: no auditory hallucinations and no visual hallucinations Cognition: recent memory grossly intact, remote memory grossly intact, attention grossly intact and language grossly intact Estimated Intelligence: consistent with education level Insight: + fair insight Judgment: + limited judgement Vital Signs (Past 24 Hours) Last Vital Signs Temp 36.6 C 04/29/24 06:00 Pulse 87 04/29/24 06:30 Resp 16 04/29/24 06:00 BP 99/63 L 04/29/24 06:30 Pulse Ox 98 04/29/24 06:00 O2 Del Method Room Air 04/29/24 06:00 Results & Data ([facility]) Current Inpatient Medications Current Inpatient Medications: Current Inpatient Medications Acetaminophen (Acetaminophen 325 Mg Tab) 650 mg PO Q4H PRN PRN Reason: Headache or Minor Fever Stop: 05/25/24 23:35 Al Hydrox/Mg Hydrox/Simethicone (Aluminum/Magnesium Susp 30 Ml Udc) 30 ml PO Q4H PRN PRN Reason: GI Upset Stop: 05/25/24 23:35 Bismuth Subsalicylate (Bismuth Subsalicylate 262 Mg Chew) 2 tab PO Q30M PRN PRN Reason: Loose Stool/Diarrhea Stop: 05/25/24 23:35 Hydroxyzine HCl (Hydroxyzine Hcl 25 Mg Tab) 50 mg PO HSZ PRN PRN Reason: Insomnia Stop: 05/25/24 23:35 Last Admin: 04/28/24 21:55 Dose: 50 mg Hydroxyzine HCl (Hydroxyzine Hcl 25 Mg Tab) 25 mg PO Q4H PRN PRN Reason: Anxiety Stop: 05/25/24 23:35 Magnesium Hydroxide (Magnesium Hydroxide Susp 30 Ml Udc) 30 ml PO DAILY PRN PRN Reason: Constipation Stop: 05/25/24 23:35 Miscellaneous ([id number]-Patient's Own Oral Contraceptive) 1 each PO HS KATEY Stop: 05/27/24 21:59 Last Admin: 04/28/24 21:52 Dose: 1 each Sertraline HCl (Sertraline Hcl 50 Mg Tablet) 50 mg PO QAM KATEY Stop: 05/27/24 08:59 Last Admin: 04/28/24 08:43 Dose: 50 mg Sodium Chloride (Sodium Chloride 0.65% Na Soln 45 Ml ([place])) 1 - 2 sprays NA PRN PRN PRN Reason: Nasal Dryness/Congestion Stop: 05/25/24 23:35 Mental Health & Subst Abuse Tx Therapist Name of Therapist: [facility] - biweekly Food Service Agent Name of Food Service Agent: None Post Discharge Appointments Primary Care Physician Name Of Family Doctor/PCP: [id number] (Primary Care Provider new pt. appt) Primary Care Date of Future Appointment with PCP: 07/01/24 Time of Appointment with PCP: 10:30 Provider Appointment Comment: 239Heather Welch. [place], [place]
[2024-04-29] MEDS ORDERED: traZODone HCL 50 MG TAB PO PRN (16:22)
[2024-04-29] MEDS: traZODone HCL 50 MG TAB PO SCH (22:18)
--- NOTE | 2024-04-30 09:05 | Psychiatric Progress Note ---
Date of Service April 30, 2024 Impression / Recommendations Impression LISA CRUMP is a 23-year-old woman and [employer] student who currently lives off campus with a roommate, has no formal psychiatric history, and was admitted on 04/25/24 23:36 on a 201 voluntary commitment for suicide attempt via cutting herself with a box covering machine operator and Ibuprofen overdose. Diagnostically consistent with major depressive disorder with anxious distress and DIONTE with panic attacks. A: Mood improving, still having sleep onset insomnia, she'd like to try higher dose of trazodone as did help with sleep maintenance. Discussed possibility of ASD, provided with SRS-2 adult self-report to explore this further. Processed ways neurodivergence can present and how it can impact and overlap with social anxiety, treatment and ways therapy and connection with other individuals who are neurodivergent can be beneficial. Overall, I spent a total of 55 minutes on this case including meeting with the patient, reviewing the chart, nursing report, multidisciplinary team meeting, orders, and documentation. (1) Suicide attempt: (2) Depression with suicidal ideation: (3) Major depressive disorder, single episode, severe with anxious distress: (4) Generalized anxiety disorder with panic attacks: (5) Autism spectrum disorder: Plan 04/30/2024: -Increase trazodone to 100mg HS -SRS-2 adult self report 04/29/2024: -Start trazodone 50mg HS and 50mg HS prn for insomnia if initial dose is ineffective 04/28/2024: Continue current medications and tx plan 04/27/2024: -Sertraline 50mg daily 04/26/2024: The patient was admitted to the [facility] ([facility] mental health unit) on q15 min checks (behavioral with suicide precautions) for safety. The patient will participate in group, recreational, and milieu therapies and will be offered additional individual and family sessions as clinically appropriate. -Start sertraline 25mg qd -Symptom Questionnaire: [place] BPD screening tool -Discussed option for outpatient IOP vs increasing frequency of outpatient therapy Inventory Assets Strengths: supportive relationships, willing to get treatment Needs: safety and stabilization, medication adjustment, additional coping skills, increased outpatient services Suicide Risk Level Suicide Risk Level: Moderate (q15 min suicide checks) (s/p serious suicide attempt but now denies SI, mood improving, feels safe in the hospital and feels able to ask for support ) Suicide Risk Level Comments: Risk Factors Assessment Male: No : Yes Do You Have Access To A Gun?: No (dad has a safe of guns but these are secured) Health Problems: No Mental Health Diagnoses: Yes Substance Use Disorders: No Previous Attempt: Yes (leading to admission) Family History of Suicide: No Previous Psychiatric Hospitalization: No Hopelessness: Yes Protective Factors Assessment 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 Chief Complaint "Very good". Review of Systems Sleep Information Total Hours of Sleep: 7 Meal Information Percent Meal Consumed - Breakfast: 100 Percent Meal Consumed - Lunch: 80 Percent Meal Consumed - Dinner: 100 Subjective Subjective Patient was seen & assessed and interval progress reviewed with treatment team. Attending all groups. Had support meeting with her parents which she feels went really well and enjoyed seeing them in person. Today reports ongoing mood improvement. Discussed timeline of admission and she feels she will be ready to discharge later this week and hopes to meet with her thesis advisor on Sunday to touch base before spring. Reviewed her plans for spring break including seeing family and spending time with a friend. No new medication side effects. Stayed asleep better with trazodone but still struggling to fall asleep, she'd like to try the higher dose. She brings up a new concern, wondering if she might be on the autism spectrum. She describes longstanding traits such as a need for structure, social difficulties, and intense interests in specific topics (e.g., giraffes, Doctor Who, a specific band) that seemed to go beyond her peers' interests. Lisa also mentions challenges with social interactions, eye contact, and understanding sarcasm and irony. She feels that exploring this possibility could help with her sense of self and identity. Discussed that certainly seems like a possibility of having high functioning ASD. Physical Exam Psychiatric Orientation: alert and oriented x 3 Apperance: appropriately dressed and appropriately groomed Eye Contact: good eye contact Motor Behavior: no abnormal motor movements Speech: normal rate/rhythm/volume of speech Affect: + constricted affect Mood: + anxious mood; no depressed mood Thought Process: goal directed thought process Thought Content: reality based without delusions Suicidal Thoughts: denies suicidal thoughts, denies suicidal plan (but s/p attempt) and denies suicidal intent Homicidal Thoughts: denies homicidal thoughts Hallucinations: no auditory hallucinations and no visual hallucinations Cognition: recent memory grossly intact, remote memory grossly intact, attention grossly intact and language grossly intact Estimated Intelligence: consistent with education level Insight: + fair insight Judgment: + fair judgement Vital Signs (Past 24 Hours) Last Vital Signs Temp 37.2 C 04/30/24 06:00 Pulse 76 04/30/24 06:00 Resp 16 04/30/24 06:00 BP 117/71 04/30/24 06:34 Pulse Ox 97 04/30/24 06:00 O2 Del Method Room Air 04/30/24 06:00 Results & Data ([facility]) Current Inpatient Medications Current Inpatient Medications: Current Inpatient Medications Acetaminophen (Acetaminophen 325 Mg Tab) 650 mg PO Q4H PRN PRN Reason: Headache or Minor Fever Stop: 05/25/24 23:35 Al Hydrox/Mg Hydrox/Simethicone (Aluminum/Magnesium Susp 30 Ml Udc) 30 ml PO Q4H PRN PRN Reason: GI Upset Stop: 05/25/24 23:35 Bismuth Subsalicylate (Bismuth Subsalicylate 262 Mg Chew) 2 tab PO Q30M PRN PRN Reason: Loose Stool/Diarrhea Stop: 05/25/24 23:35 Hydroxyzine HCl (Hydroxyzine Hcl 25 Mg Tab) 50 mg PO HSZ PRN PRN Reason: Insomnia Stop: 05/25/24 23:35 Last Admin: 04/28/24 21:55 Dose: 50 mg Hydroxyzine HCl (Hydroxyzine Hcl 25 Mg Tab) 25 mg PO Q4H PRN PRN Reason: Anxiety Stop: 05/25/24 23:35 Magnesium Hydroxide (Magnesium Hydroxide Susp 30 Ml Udc) 30 ml PO DAILY PRN PRN Reason: Constipation Stop: 05/25/24 23:35 Miscellaneous ([id number]-Patient's Own Oral Contraceptive) 1 each PO HS KATEY Stop: 05/27/24 21:59 Last Admin: 04/29/24 22:15 Dose: 1 each Sertraline HCl (Sertraline Hcl 50 Mg Tablet) 50 mg PO QAM KATEY Stop: 05/27/24 08:59 Last Admin: 04/29/24 09:13 Dose: 50 mg Sodium Chloride (Sodium Chloride 0.65% Na Soln 45 Ml ([place])) 1 - 2 sprays NA PRN PRN PRN Reason: Nasal Dryness/Congestion Stop: 05/25/24 23:35 Trazodone HCl (Trazodone Hcl 50 Mg Tab) 50 mg PO HS KATEY Stop: 05/29/24 21:59 Last Admin: 04/29/24 22:18 Dose: 50 mg Trazodone HCl (Trazodone Hcl 50 Mg Tab) 50 mg PO HS PRN PRN Reason: insomnia Stop: 05/29/24 21:59 Mental Health & Subst Abuse Tx Therapist Name of Therapist: Renato Botello Therapist's Teacher Emotionally Impaired Name of Teacher Emotionally Impaired: None Post Discharge Appointments Primary Care Physician Name Of Family Doctor/PCP: [facility] (Primary Care Provider new pt. appt) Primary Care Date of Future Appointment with PCP: 05/09/24 Time of Appointment with PCP: 11:00 Provider Appointment Comment: Babar Welch. [place], [place]
[2024-04-30] MEDS: traZODone HCL 100 MG TAB PO SCH (21:56)
--- NOTE | 2024-05-01 08:53 | Psychiatric Progress Note ---
Date of Service May 01, 2024 Impression / Recommendations Impression TAMI CRUMP is a 23-year-old woman and [employer] student who currently lives off campus with a roommate, has no formal psychiatric history, and was admitted on 04/25/24 23:36 on a 201 voluntary commitment for suicide attempt via cutting herself with a ammonia box operator and Ibuprofen overdose. Diagnostically consistent with major depressive disorder with anxious distress and DIONTE with panic attacks. A: Mood continues to improve, sleep improved with higher dose of trazodone but had some sluggishness so she'd like to try a slightly lower dose of 75mg. Reviewed SRS-2 consistent with ASD. Overall, I spent a total of 35 minutes on this case including meeting with the patient, reviewing the chart, nursing report, multidisciplinary team meeting, orders, and documentation. (1) Suicide attempt: (2) Depression with suicidal ideation: (3) Major depressive disorder, single episode, severe with anxious distress: (4) Generalized anxiety disorder with panic attacks: (5) Autism spectrum disorder: Plan 05/01/2024: -Decrease trazodone slightly to 75mg HS 04/30/2024: -Increase trazodone to 100mg HS -SRS-2 adult self report 04/29/2024: -Start trazodone 50mg HS and 50mg HS prn for insomnia if initial dose is ineffective 04/28/2024: Continue current medications and tx plan 04/27/2024: -Sertraline 50mg daily 04/26/2024: The patient was admitted to the [facility] ([facility] mental health unit) on q15 min checks (behavioral with suicide precautions) for safety. The patient will participate in group, recreational, and milieu therapies and will be offered additional individual and family sessions as clinically appropriate. -Start sertraline 25mg qd -Symptom Questionnaire: [place] BPD screening tool -Discussed option for outpatient IOP vs increasing frequency of outpatient therapy Inventory Assets Strengths: supportive relationships, willing to get treatment Needs: safety and stabilization, medication adjustment, additional coping skills, increased outpatient services Suicide Risk Level Suicide Risk Level: Low (q15 min observation checks) (s/p serious suicide attempt but now denies SI, mood improving, feels safe in the hospital and feels able to ask for support ) Suicide Risk Level Comments: Risk Factors Assessment Male: No : Yes Do You Have Access To A Gun?: No (dad has a safe of guns but these are secured) Health Problems: No Mental Health Diagnoses: Yes Substance Use Disorders: No Previous Attempt: Yes (leading to admission) Family History of Suicide: No Previous Psychiatric Hospitalization: No Hopelessness: Yes Protective Factors Assessment 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 Chief Complaint "Good". Review of Systems Sleep Information Total Hours of Sleep: 6.25 Meal Information Percent Meal Consumed - Breakfast: 100 Percent Meal Consumed - Lunch: 90 Percent Meal Consumed - Dinner: 100 Subjective Subjective Patient was seen & assessed and interval progress reviewed with nursing and social work. Attending groups, more social. Rated mood as "focused" last evening. Today reports her mood as "good". Slept well with trazodone but had some sluggishness/grogginess this morning so she'd like to try a slightly lower dose. Denies SI. Reviewed SRS-2 adult self report and her raw score translates to >90 t-score consistent with likely diagnosis of ASD. She feels this helps confirm what she has suspected for many years. She felt like many of the questions on the SRS applied to what she finds difficult, especially in social settings. Physical Exam Psychiatric Orientation: alert and oriented x 3 Apperance: appropriately dressed and appropriately groomed Eye Contact: good eye contact Motor Behavior: no abnormal motor movements Speech: normal rate/rhythm/volume of speech Affect: euthymic affect Mood: + anxious mood; no depressed mood Thought Process: goal directed thought process Thought Content: reality based without delusions Suicidal Thoughts: denies suicidal thoughts, denies suicidal plan and denies suicidal intent Homicidal Thoughts: denies homicidal thoughts Hallucinations: no auditory hallucinations and no visual hallucinations Cognition: recent memory grossly intact, remote memory grossly intact, attention grossly intact and language grossly intact Estimated Intelligence: consistent with education level Insight: + fair insight Judgment: + fair judgement Vital Signs (Past 24 Hours) Last Vital Signs Temp 37.0 C 05/01/24 06:30 Pulse 86 05/01/24 06:30 Resp 16 05/01/24 06:30 BP 109/69 05/01/24 06:32 Pulse Ox 96 05/01/24 06:30 O2 Del Method Room Air 05/01/24 06:30 Results & Data ([facility]) Current Inpatient Medications Current Inpatient Medications: Current Inpatient Medications Acetaminophen (Acetaminophen 325 Mg Tab) 650 mg PO Q4H PRN PRN Reason: Headache or Minor Fever Stop: 05/25/24 23:35 Al Hydrox/Mg Hydrox/Simethicone (Aluminum/Magnesium Susp 30 Ml Udc) 30 ml PO Q4H PRN PRN Reason: GI Upset Stop: 05/25/24 23:35 Bismuth Subsalicylate (Bismuth Subsalicylate 262 Mg Chew) 2 tab PO Q30M PRN PRN Reason: Loose Stool/Diarrhea Stop: 05/25/24 23:35 Hydroxyzine HCl (Hydroxyzine Hcl 25 Mg Tab) 50 mg PO HSZ PRN PRN Reason: Insomnia Stop: 05/25/24 23:35 Last Admin: 04/28/24 21:55 Dose: 50 mg Hydroxyzine HCl (Hydroxyzine Hcl 25 Mg Tab) 25 mg PO Q4H PRN PRN Reason: Anxiety Stop: 05/25/24 23:35 Magnesium Hydroxide (Magnesium Hydroxide Susp 30 Ml Udc) 30 ml PO DAILY PRN PRN Reason: Constipation Stop: 05/25/24 23:35 Miscellaneous ([id number]-Patient's Own Oral Contraceptive) 1 each PO HS KATEY Stop: 05/27/24 21:59 Last Admin: 04/30/24 21:56 Dose: 1 each Sertraline HCl (Sertraline Hcl 50 Mg Tablet) 50 mg PO QAM KATEY Stop: 05/27/24 08:59 Last Admin: 05/01/24 08:46 Dose: 50 mg Sodium Chloride (Sodium Chloride 0.65% Na Soln 45 Ml ([place])) 1 - 2 sprays NA PRN PRN PRN Reason: Nasal Dryness/Congestion Stop: 05/25/24 23:35 Trazodone HCl (Trazodone Hcl 100 Mg Tab) 100 mg PO HS KATEY Stop: 05/30/24 21:59 Last Admin: 04/30/24 21:56 Dose: 100 mg Mental Health & Subst Abuse Tx Psychiatrist Psychiatric Appointment Comment: Lindsay Naranjo will do med management Therapist Name of Therapist: Renato Botello Therapist's Date of Therapist Appointment: 05/19/24 Time of Therapist Appointment: 8:30am Therapy Appointment Comment: Will be seen every other Sunday morning, and opposite Sundays Gluer And Slicer Hand Name of Gluer And Slicer Hand: None Post Discharge Appointments Primary Care Physician Name Of Family Doctor/PCP: Dr. Dangelo Spicer Primary Care Date of Future Appointment with PCP: 05/08/24 Time of Appointment with PCP: 10:50 Provider Appointment Comment: [facility], [place] [id number] Contact Information Discharge Discharge Address: [address] [place] [address], [place] [address]
[2024-05-01] MEDS: traZODone HCL 50 MG TAB PO SCH (22:18)
--- NOTE | 2024-05-02 09:57 | Discharge Summary ---
Date of Service May 02, 2024 History of Present Illness She presents for psychiatric admission following a suicide attempt via cutting her right thigh ~50 times with a stretch box tender and overdose of Ibuprofen (~20 tabs) in the context of academic stress related to her thesis and worsening depression. She describes a gradual onset of depressive symptoms over the past couple of months, which intensified in the last one to two days leading to the suicide attempt. She had initially planned the attempt for Sunday after a rugby tournament but moved it up by a day after learning that the tournament would require an overnight stay which would have prevented her planned timeline for suicide. She endorses depressive symptoms starting at the beginning of February and then started to plan to by suicide in the last 1-2 days. She decided to attempt via cutting and taking pills and researched the maximum recommended dosage for Ibuprofen and then took all the pills she had left in a bottle. After taking the pills and cutting herself she decided to tell her roommate who then brought her to the hospital. She endorses symptoms of depression starting in February including physical discomfort, tearfulness and numbness, anhedonia (not wanting to see friends or engage in activities), decreased motivation (including for schoolwork which typically she is very anxious about staying on top of), self-guilt, helplessness, hopelessness, worthlessness, decreased energy (despite drinking a lot more caffeine), stable appetite, and fluctuating sleep more recently sleeping more but with multiple overnight awakenings. SI has been occurring for the last week and intensified in the last 1-2 days. She also endorses symptoms of anxiety including fear of how she's feeling, being 'scared in general,' and recent panic attacks involving intense crying and difficulty breathing, occurring suddenly in inconvenient places, including during rugby practice. She is not currently prescribed any psychiatric medications. Psychiatric ROS notable for no current nor history of symptoms of prachi, psychosis, PTSD, OCD nor eating disorder. History of self-harm in high school 5- 6 years ago, none since that time until during the attempt. Physical Exam Vital Signs (Past 24 Hours) Last Vital Signs Temp 36.8 C 05/02/24 09:44 Pulse 87 05/02/24 09:44 Resp 12 05/02/24 09:44 BP 110/73 05/02/24 09:44 Pulse Ox 94 05/02/24 09:44 O2 Del Method Room Air 05/02/24 06:00 Principal Diagnosis Major Depressive Disorder Psychiatric Data See daily stay summary. In short, patient was engaged with the social/therapeutic milieu of the unit, safety was maintained and the patient was cooperative with care. Medication changes included initiation of sertraline and trazodone for depression and insomnia and they tolerated this well. A support session was held and safety plan was completed prior to discharge. They participated in safety planning and in discussions about ways to seek support and recognizing warning signs and utilizing coping skills. Reviewed ways to have their safety plan and contacts easily available should thoughts of SI re-emerge in the future. Reviewed importance of seeking emergency care should SI intensify, worsen or should they feel unsafe in the future which they agree to do. On the day of discharge they stated their mood was "excited" and remained future-oriented including spending time with family and friends, relaxing, meeting with [employer] team and thesis advisor and engaging in aftercare appointments for therapy and [employer] student care and advocacy. Day of Discharge Assessment Today the patient voices readiness for discharge. They note improvement in mood and anxiety. They deny thoughts of harm to self or others. Thoughts are organized and they are clinically improved from admission. There is no evidence of psychosis. They improved in the hospital with support and medication adjustments. They agree to take medications as prescribed and keep follow-up appointments. At the time of the discharge they are deemed to be stable and appropriate for outpatient level of care. They are not deemed to be at imminent risk of harm to self or others. They are aware of emergency and crisis services. Knows to call 911 or go to nearest emergency care center if in a crisis which cannot be handled as an outpatient. Suicide risk assessment: Acute risk is low given improvement in mood and denial of SI, lack of access to lethal means, improvement in sleep, hopefulness and increased sense of identity as it relates to social struggles with new suspected diagnosis of autism spec trum disorder. Chronic risk is moderate given some non-modifiable risk factors: psychiatric co-morbid diagnoses, prior attempt but also with protective factors including student, good social support, sense of responsibility to family and social supports, outpatient care in place, positive coping skills, positive problem solving, willingness to engage with treatment and self-observation. Counseled on ways to reduce acute and chronic risk including engaging with outpatient providers, using safety plan if needed, utilizing supports, taking medication, and using coping skills. Modifiable risk factors of SI and depression were addressed during hospitalization through development of new coping skills, diagnostic clarification, support meeting, safety planning, and medication adjustments. Discharge physical exam: See admission H&P, MSE per above and day of discharge summary. Overall, I spent a total of 35 minutes on this case including meeting with the patient, reviewing the chart, nursing report, multidisciplinary team meeting, discharge orders, anticipatory planning, safety planning, risk assessment and documentation. Transition of Care Transition Of Care Record: was reviewed with the patient Advance Directives Advance Directives Information Provided: Yes Advance Directives: No Mental Health Advance Directive: No Advance Directives on File: No Living Will: No Power of Turnstile Attendant: No Advance Directives Reason:: Declines as Mental Health Visit. Suicide Risk Level Suicide Risk Level Comments: Acute risk is low given denial of SI, future oriented, see further assessment above. 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 Relationships: Yes Supportive Family: Yes Good Rapport with Provider: Yes (therapist ) Tobacco Cessation at Discharge Tobacco Cessation Medication Prescribed at Discharge: Not Applicable/Non-Smoker Discharge Data Lab Results 04/25/24 04/25/24 04/25/24 17:14 17:38 17:46 WBC 6.73 RBC 4.23 Hgb 13.7 Hct 39.6 MCV 93.6 MCH 32.4 MCHC 34.6 RDW Std Deviation 38.5 RDW Coeff of Ethan 11.4 L Plt Count 220 MPV 11.3 Immature Gran % (Auto) 0.3 Neut % (Auto) 68.2 Lymph % (Auto) 20.7 [place] % (Auto) 9.8 Eos % (Auto) 0.7 Baso % (Auto) 0.3 Neut # (Auto) 4.59 Lymph # (Auto) 1.39 [place] # (Auto) 0.66 H Eos # (Auto) 0.05 Baso # (Auto) 0.02 Immature Gran # (Auto) 0.02 Sodium 140 Potassium 4.2 Chloride 106 Carbon Dioxide 28 Anion Gap 6 BUN 15 Creatinine 0.89 Est Cr Clr Drug Dosing 102.7 eGFR 93.37 BUN/Creatinine Ratio 16.9 Glucose 87 Calcium 9.1 Total Bilirubin 0.4 AST 18 ALT 14 Alkaline Phosphatase 50 Total Protein 7.2 Albumin 4.4 Globulin 2.8 Albumin/Globulin Ratio 1.6 TSH 1.198 Urine Color Yellow Urine Appearance Clear Urine pH 6.5 Ur Specific [place] 1.017 Urine Protein Negative Urine Glucose (UA) Negative Urine Ketones Negative Urine Blood Trace H Urine Nitrite Negative Urine Bilirubin Negative Urine Urobilinogen Negative Ur Leukocyte Esterase Negative Urine WBC (Auto) 0-5 Urine RBC (Auto) 0-2 U Hyaline Cast (Auto) 0-2 U Epithel Cells (Auto) 0-2 Urine Bacteria (Auto) None Seen Urine Test Negative Salicylates < 3.0 L Urine Opiates Screen Neg Ur Methadone, Qual Neg Urine Fentanyl Screen Neg Acetaminophen < 3 L Urine Barbiturates Neg Ur Phencyclidine (PCP) Neg U Amphetamin/Meth Scrn Neg MDMA (Ecstasy) Screen Neg U Benzodiazepines Scrn Neg Ur Cocaine Metabolite Neg U Marijuana (THC) Screen Neg Ethyl Alcohol mg/dL < 10.0 SARS-CoV-2, RNA, NAAT 04/25/24 Unknown WBC RBC Hgb Hct MCV MCH MCHC RDW Std Deviation RDW Coeff of Ethan Plt Count MPV Immature Gran % (Auto) Neut % (Auto) Lymph % (Auto) [place] % (Auto) Eos % (Auto) Baso % (Auto) Neut # (Auto) Lymph # (Auto) [place] # (Auto) Eos # (Auto) Baso # (Auto) Immature Gran # (Auto) Sodium Potassium Chloride Carbon Dioxide Anion Gap BUN Creatinine Est Cr Clr Drug Dosing eGFR BUN/Creatinine Ratio Glucose Calcium Total Bilirubin AST ALT Alkaline Phosphatase Total Protein Albumin Globulin Albumin/Globulin Ratio TSH Urine Color Urine Appearance Urine pH Ur Specific [place] Urine Protein Urine Glucose (UA) Urine Ketones Urine Blood Urine Nitrite Urine Bilirubin Urine Urobilinogen Ur Leukocyte Esterase Urine WBC (Auto) Urine RBC (Auto) U Hyaline Cast (Auto) U Epithel Cells (Auto) Urine Bacteria (Auto) Urine Test Salicylates Urine Opiates Screen Ur Methadone, Qual Urine Fentanyl Screen Acetaminophen Urine Barbiturates Ur Phencyclidine (PCP) U Amphetamin/Meth Scrn MDMA (Ecstasy) Screen U Benzodiazepines Scrn Ur Cocaine Metabolite U Marijuana (THC) Screen Ethyl Alcohol mg/dL SARS-CoV-2, RNA, NAAT NEGATIVE Hospital Course (1) Suicide attempt: (2) Depression with suicidal ideation: (3) Major depressive disorder, single episode, severe with anxious distress: (4) Generalized anxiety disorder with panic attacks: (5) Autism spectrum disorder: Plan 05/02/2024: -Feels safe and ready for discharge 05/01/2024: -Decrease trazodone slightly to 75mg HS 04/30/2024: -Increase trazodone to 100mg HS -SRS-2 adult self report 04/29/2024: -Start trazodone 50mg HS and 50mg HS prn for insomnia if initial dose is ineffective 04/28/2024: Continue current medications and tx plan 04/27/2024: -Sertraline 50mg daily 04/26/2024: The patient was admitted to the [facility] ([facility]) on q15 min checks (behavioral with suicide precautions) for safety. The patient will participate in group, recreational, and milieu therapies and will be offered additional individual and family sessions as clinically appropriate. -Start sertraline 25mg qd -Symptom Questionnaire: [place] BPD screening tool -Discussed option for outpatient IOP vs increasing frequency of outpatient therapy Mental Health & Subst Abuse Tx Psychiatrist Psychiatric Appointment Comment: PCP will do med management Therapist Name of Therapist: Renato Botello Therapist's Date of Therapist Appointment: 05/19/24 Time of Therapist Appointment: 8:30am Therapy Appointment Comment: Will be seen every other Sunday morning, and opposite Sundays Therapist Release of Information: Obtained, Reviewed and Signed Bus Transportation Manager Name of Bus Transportation Manager: None Post Discharge Appointments Primary Care Physician Name Of Family Doctor/PCP: Dr. Dangelo Spicer Primary Care Date of Future Appointment with PCP: 05/08/24 Time of Appointment with PCP: 10:50 [facility] [address] Primary Care Release of Information: Obtained, Reviewed and Signed Home Health Services Home Health Services:: None Smoking Cessation Counseling Tobacco Cessation Medication Prescribed at Discharge: Not Applicable/Non-Smoker Other #1: Name of Aftercare Appointment: Student Care and Advocacy Phone Number of Aftercare Appointment: [phone] Date of Aftercare Appointment: 05/08/24 Time of Aftercare Appointment: 9am Aftercare Appointment Comment: They will send link to your [employer] email Release of Information Aftercare Appointment: Obtained, Reviewed and Signed Contact Information Discharge Discharge Address: [address] [place] [address] Discharge Plan Discharge Items Patient Disposition: Home - Self-Care Reason For Visit: UNSPECIFIED DEPRESSIVE DISORDER Discharge Diagnosis: Major Depressive Disorder Activity: Resume your previous activity Non-emergency contact: Primary Care Provider and Therapist Call non-emergency contact if: you have any medication questions and your symptoms worsen Follow-up/Referrals: [facility] [Primary Care Provider] - Diet: Regular Addtl Attending Provider Instructions: Optional mobile apps we discussed: -Suicide safety plan -Virtual Hope Box SPECIAL CARE INSTRUCTIONS: 1. Follow through with your scheduled aftercare appointments. If unable to keep an appointment, please call to reschedule. 2. Take your medication only as prescribed. Medication should not be changed or stopped without the approval of your doctor. In the event of worsening symptoms or concerns about side effects, contact your doctor immediately. 3. Utilize new healthy coping skills, anger management skills, and stress management skills learned during your hospitalization. Journal feelings and process them with a support person. Identify stressors or situations that may result in relapse, deterioration or inappropriate behaviors and develop a plan to deal with those issues. 4. If your coping skills are ineffective and you are in crisis, contact your outpatient providers for direction. If unable to reach your providers, please call the [facility] CRISIS LINE AT , go to the [facility] walk-in center at [address] [place] [address], [facility], or go to the closest Emergency Room. 5. Avoid alcohol and un-prescribed drugs. 6. You have been provided with the Mental Health Advance Directives Pamphlet for your review. 7. Your condition is stable for discharge to outpatient level of care, but recovery is an ongoing process. Ifthoughts to harm yourself or others return, follow the safety plan developed during your stay. Planning for a safe return home includes securing weapons. Our treatment team recommends weaponsbe removed from the home until your outpatient provider reassesses your progress. In rare cases where the items themselvescannot be removed, guns and ammunitionshould be secured separatelyand keys stored by a reliable personoutside of the home. If you were admitted on an involuntary commitment, the police or other legal authorities may be involved in this process. AFTERCARE APPOINTMENTS: * Please call your insurance company prior to your scheduled appointment to confirm your aftercare providers are covered. Take your insurance information to your appointments. WHO TO CALL AND WHEN: Medical Emergencies: For questions or emergencies related to your hospital stay, please contact the Inpatient Behavioral Health Unit at [phone]. A psychiatric nursing aide is on-call 18/09 for the Behavioral Health Unit for emergencies At any time you feel your situation is an emergency, you may also call 911 immediately. National Crisis Hotline: 829 Pending Studies at Discharge: No Stand-Alone Forms: [facility] Medications and DC Order Prescriptions: New trazodone 50 mg Tablet 75 mg PO HS 30 Days Qty: 45 0RF sertraline 50 mg Tablet 50 mg PO QAM 30 Days Qty: 30 0RF Continued Low-Ogestrel (28) 0.3-30 mg-mcg tablet 1 tab PO DAILY Discharge Orders: Discharge Order (Routine); Ordered 05/02/24 Ordered By: Madhuri Brock Admission Data Admit Date/Time: 04/25/24 23:36 Attending Provider: Madhuri Brock Admit Provider: Madhuri Brock Primary Care Provider: [facility] Other Interventions: Discharge Summary Assessment (RN) Last Done: 05/02/24 09:44 PSY Interdisciplinary Discharge Planning Last Done: 05/02/24 09:43 Coding Level of Care Code 49590 D/C day mgmt > 30 min Diagnoses Suicide attempt T14.91XA Depression with suicidal ideation F32.A; R45.851 Major depressive disorder, single episode, severe with anxious distress F32.2 Generalized anxiety disorder with panic attacks F41.1; F41.0 Autism spectrum disorder F84.0
== END 2024-05-02 10:20 | disposition home or self-care (01) | DRG 885 ==
LOC: ED 16:39 → 3S 23:36